=== PATIENT | male | born 1970 | race Caucasian/White ===

== ENCOUNTER 2017-02-11 12:29 | Emergency (ER) | payer OTHER ==
[2017-02-11 12:45] VITALS: BP 120/70
--- NOTE | 2017-02-11 13:15 | UC ---
Respiratory Complaint HPI - HPI Summary HPI Summary: Patient presents with complaints of sinus pain, pressure, and green nasal discharge. He also complains of right sided sinus pain behind the eye, that is worse with bending down or movement. He denies fever, chills, dizziness, ataxia , or weakness. - History of Current Complaint Chief Complaint: UCHeadache Stated Complaint: HEADACHE Time Seen by Provider: 02/11/17 13:02 Hx Obtained From: Patient Onset/Duration: Gradual Onset, Lasting Days Timing: Constant Severity Initially: Moderate Severity Currently: Moderate Aggravating Factors: Other - bending over, position changes Associated Signs And Symptoms: Positive: URI, Nasal Congestion - Risk Factors Pulmonary Embolism Risk Factors: Negative Cardiac Risk Factors: Negative Pseudomonas Risk Factors: Negative Tuberculosis Risk Factors: Negative - Allergies/Home Medications Allergies/Adverse Reactions: Allergies Allergy/AdvReac Type Severity Reaction Status Date / Time No Known Allergies Allergy Verified 02/11/17 12:45 Home Medications: Home Medications Fluticasone NASAL * [Flonase *] 2 spray BOTH NARES DAILY 02/11/17 [History Confirmed 02/11/17] Loratadine [Claritin 10 MG CAP] 10 mg PO 02/11/17 [History] PMH/Surg Hx/FS Hx/Imm Hx Previously Healthy: Yes - Surgical History Surgical History: None - Social History Occupation: Employed Full-time Lives: Alone Alcohol Use: Daily Substance Use Type: None Smoking Status (MU): Never Smoked Tobacco Review of Systems Constitutional: Negative Skin: Negative Eyes: Negative ENT: Nasal Discharge, Sinus Congestion, Sinus Pain/Tenderness Respiratory: Negative Cardiovascular: Negative Gastrointestinal: Negative Genitourinary: Negative Motor: Negative Neurovascular: Negative Musculoskeletal: Negative All Other Systems Reviewed And Are Negative: Yes Physical Exam Triage Information Reviewed: Yes Appearance: Well-Appearing Vital Signs: Initial Vital Signs Temp 97.6 F 02/11/17 12:41 Pulse 52 02/11/17 12:41 Resp 18 02/11/17 12:41 BP 120/70 02/11/17 12:41 Pulse Ox 100 02/11/17 12:41 Vital Signs Reviewed: Yes Eye Exam: Normal ENT: Positive: Nasal congestion, Other: - turbinates are erythmatous, edematous with injection and occulsion of 60-70 percent of the right nares. no visible anterior rhinorrhea. Neck exam: Normal Neck: Positive: 1 Respiratory Exam: Normal Cardiovascular Exam: Normal Abdominal Exam: Normal Musculoskeletal Exam: Normal Neurological Exam: Normal Psychological Exam: Normal Skin Exam: Normal UC Diagnostic Evaluation - Laboratory O2 Sat by Pulse Oximetry: 100 Respiratory Course/Dx - Course Course Of Treatment: Patient presents with clinical signs of sinusitis, treated with biaxin and prednisone. instructed to follow up if symtpoms do not improve as anticipated. - Differential Dx/Diagnosis Differential Diagnosis/HQI/PQRI: Sinusitis Provider Diagnoses: sinusitis Discharge - Discharge Plan Condition: Stable Disposition: HOME Prescriptions: Clarithromycin TAB* [Biaxin 500 MG TAB*] 500 mg PO BID #20 tab predniSONE TAB* [Deltasone TAB*] 20 mg PO BID #10 tab Patient Education Materials: Sinusitis (ED) Referrals: Reuben GLOVER,Eduard Palma [Primary Care Provider] -
== END 2017-02-11 13:14 | disposition home or self-care (01) ==
LOC: UCEAST 12:29
DX: J32.9 Chronic sinusitis, unspecified (principal)
CPT/HCPCS: 99212; G0463